=== PATIENT | female | born 1965 | race Two or more races ===

== ENCOUNTER 2024-05-23 12:36 | Inpatient (IN) | payer OTHER ==
[~2024-05-23] VITALS: Ht 160 cm; Wt 57.2 kg
[2024-05-23 09:29] LABS: URINE APPEARANCE Clear; URINE BILIRRUBIN Negative (NEGATIVE); URINE BLOOD Negative; URINE COLOR Yellow; URINE GLUCOSE Negative (NEGATIVE); URINE KETONE Negative (NEGATIVE); URINE LEUKOCYTE Negative; URINE NITRATE Negative; URINE PROTEIN Negative (NEGATIVE); URINE UROBILINOGEN 0.2 E.U./dl
[2024-05-23 09:45] LABS: URINE BACTERIA 3.6 uL (0.0-1933); URINE EPITHELIAL CELLS 0.9 uL (0.0-38.8); URINE RBC 1.6 uL (0.0-20.8)
[2024-05-23 09:49] LABS: HEMATOCRIT 24.2 % (36.0-45.00); MEAN CELL VOLUME 88.7 fL (80.00-100.00); MEAN CORPUSCULAR HGB CONC 33.7 g/dl (32.0-36.0); PLATELET COUNT 259 K/uL (150-450); RED BLOOD COUNT 2.73 M/uL (4.00-6.00); RED CELL DISTRIBUTION WIDTH 18.5 % (11.5-14.5)
[2024-05-23 09:51] LABS: HEMOGLOBIN 8.2 g/dL (12.0-15.00)
[2024-05-23 10:07] LABS: INR 1.06; PARTIAL THROMBOPLASTIN TIME 27.7 SECONDS (22.0-34.0); PROTHROMBIN TIME 11.5 SECONDS (9.0-11.5)
[2024-05-23 10:19] LABS: ALBUMIN 3.8 gm/dL (3.4-5.0); BILIRUBIN TOTAL 0.47 mg/dL (0.3-1.2); CALCIUM 11.1 mg/dL (8.5-10.1); CREATININE SERUM 0.68 mg/dL (0.55-1.02); GFR 88.26; GLOBULINA 2.7 G/DL (2.4-3.5); POTASSIUM 4.17 mEq/L (3.5-5.1); TOTAL PROTEIN 6.5 gm/dL (6.4-8.2)
[2024-05-23] MEDS ORDERED: COZAAR100 MG PO (12:41)
[2024-05-23 12:42] VITALS: BP 157/72
[2024-05-23] MEDS ORDERED: CEFAZOLIN SODIUM 1,000 MG VIAL IV SCH (14:15)
[2024-05-23 14:37] LABS: RH POSITIVE
[2024-05-23 15:26] LABS: HEMATOCRIT 24.3 % (36.0-45.00); MEAN CELL VOLUME 87.4 fL (80.00-100.00); MEAN CORPUSCULAR HGB CONC 33.6 g/dl (32.0-36.0); PLATELET COUNT 261 K/uL (150-450); RED BLOOD COUNT 2.78 M/uL (4.00-6.00); RED CELL DISTRIBUTION WIDTH 18.8 % (11.5-14.5)
[2024-05-23 15:58] LABS: ALBUMIN 3.8 gm/dL (3.4-5.0); BILIRUBIN TOTAL 0.44 mg/dL (0.3-1.2); CREATININE SERUM 0.7 mg/dL (0.55-1.02); GFR 85.35; GLOBULINA 2.7 G/DL (2.4-3.5); POTASSIUM 3.98 mEq/L (3.5-5.1); TOTAL PROTEIN 6.5 gm/dL (6.4-8.2)
[2024-05-23 16:00] VITALS: BP 135/61; O2SAT 98
[2024-05-23 16:10] LABS: MEAN CORPUSCULAR HEMOGLOBIN 29.4 pg (27.00-32.0)
[2024-05-23 16:11] LABS: HEMOGLOBIN 8.2 g/dL (12.0-15.00)
[2024-05-23] MEDS ORDERED: INSULIN LISPRO 1,000 UNIT/10 ML UNITS SUBCUTANEO PRN (17:15)
[2024-05-23] MEDS ORDERED: ENALAPRILAT DIHYDRATE 1.25 MG/ML VIAL IV PRN (17:15)
[2024-05-23] MEDS ORDERED: DEXTROSE 50 % IN WATER 0.5 G/ML DISP.SYRIN IV PRN (17:15)
[2024-05-24] VITALS: BP 110/55; O2SAT 98
[2024-05-24 08:00] VITALS: BP 104/50; O2SAT 95
[2024-05-24] MEDS ORDERED: LOSARTAN POTASSIUM 50 MG TABLET PO SCH (09:00)
[2024-05-24] MEDS ORDERED: FAMOtidine 20 MG TABLET PO SCH (09:00)
== END 2024-05-24 14:29 | disposition home or self-care (01) | DRG 599 ==
LOC: SURH 13:28 → SURG 05-24 11:30 → SURH 05-24 14:29 → SURG 05-24 15:00
PROVIDERS: ADMIT Surgery; ATTEND Surgery
DX: C50.512 Malignant neoplasm of lower-outer quadrant of left female breast (principal); Z53.09 Procedure and treatment not carried out because of other contraindication; D64.9 Anemia, unspecified

== ENCOUNTER 2024-06-12 07:00 | Inpatient (IN) | payer OTHER ==
[~2024-06-12] VITALS: Ht 160 cm; Wt 68.0 kg
[~2024-06-12 07:00] MED LIST: COZAAR100 MG PO
[2024-06-13] MEDS ORDERED: LOSARTAN POTASSIUM 50 MG TABLET PO SCH (16:20)
[2024-06-13 18:01] LABS: URINE APPEARANCE Clear; URINE BILIRRUBIN Negative (NEGATIVE); URINE BLOOD Negative; URINE COLOR Yellow; URINE EPITHELIAL CELLS 1.8 uL (0.0-38.8); URINE GLUCOSE Negative (NEGATIVE); URINE KETONE Negative (NEGATIVE); URINE LEUKOCYTE Negative; URINE NITRATE Negative; URINE PROTEIN Negative (NEGATIVE); URINE RBC 2.3 uL (0.0-20.8); URINE UROBILINOGEN 0.2 E.U./dl; URINE WBC 2.6 uL (0.0-23.2)
[2024-06-13 18:14] LABS: INR 1.08; PARTIAL THROMBOPLASTIN TIME 27.4 SECONDS (22.0-34.0); PROTHROMBIN TIME 11.7 SECONDS (9.0-11.5)
[2024-06-13 18:16] LABS: MEAN CELL VOLUME 86.1 fL (80.00-100.00); MEAN CORPUSCULAR HGB CONC 33.6 g/dl (32.0-36.0); PLATELET COUNT 206 K/uL (150-450); RED BLOOD COUNT 2.44 M/uL (4.00-6.00)
[2024-06-13 18:22] LABS: ALBUMIN 3.7 gm/dL (3.4-5.0); BILIRUBIN TOTAL 0.5 mg/dL (0.3-1.2); CALCIUM 11.5 mg/dL (8.5-10.1); CREATININE SERUM 0.98 mg/dL (0.55-1.02); GFR 57.89; GLOBULINA 2.7 G/DL (2.4-3.5); POTASSIUM 3.46 mEq/L (3.5-5.1); TOTAL PROTEIN 6.4 gm/dL (6.4-8.2)
[2024-06-13 18:23] LABS: URINE BACTERIA 1.2 uL (0.0-1933)
[2024-06-13 19:24] VITALS: BP 136/53; O2SAT 100
[2024-06-13 20:01] LABS: HEMOGLOBIN 7.1 g/dL (12.0-15.00)
[2024-06-14 00:34] VITALS: BP 109/62; O2SAT 98
[2024-06-14 08:00] VITALS: BP 126/79; O2SAT 96
[2024-06-14] MEDS ORDERED: SODIUM CHLORIDE 0.9% IV SCH (09:00)
[2024-06-14] MEDS ORDERED: CEFAZOLIN SODIUM IV SCH (09:00)
[2024-06-14 10:22] LABS: HEMATOCRIT 31.3 % (36.0-45.00); HEMOGLOBIN 10.7 g/dL (12.0-15.00); MEAN CELL VOLUME 86.2 fL (80.00-100.00); MEAN CORPUSCULAR HEMOGLOBIN 29.4 pg (27.00-32.0); MEAN CORPUSCULAR HGB CONC 34.1 g/dl (32.0-36.0); PLATELET COUNT 202 K/uL (150-450); RED BLOOD COUNT 3.63 M/uL (4.00-6.00); RED CELL DISTRIBUTION WIDTH 17.3 % (11.5-14.5)
[2024-06-14] MEDS ORDERED: CHLORHEXIDINE GLUCONATE 120 ML BOTTLE TOP ONE (14:24)
[2024-06-14] MEDS ORDERED: CEFAZOLIN SODIUM 1,000 MG VIAL ONE (15:45)
== END 2024-06-14 19:07 | disposition home or self-care (01) | DRG 580 ==
LOC: SURH 07:00
PROVIDERS: ADMIT Surgery; ATTEND Surgery
PROC: 07B60ZZ Excision of Left Axillary Lymphatic, Open Approach (ICD-10-PCS; principal; 2024-06-13)
PROC: BH41ZZZ Ultrasonography of Left Breast (ICD-10-PCS; 2024-06-13)
PROC: BH01ZZZ Plain Radiography of Left Breast (ICD-10-PCS; 2024-06-13)
PROC: 0HBU0ZZ Excision of Left Breast, Open Approach (ICD-10-PCS; 2024-06-13)
DX: C50.512 Malignant neoplasm of lower-outer quadrant of left female breast (principal); C77.3 Secondary and unspecified malignant neoplasm of axilla and upper limb lymph nodes

== ENCOUNTER 2024-07-23 14:18 | Inpatient (IN) | payer OTHER ==
[~2024-07-23] VITALS: Ht 160 cm; Wt 55.3 kg
--- NOTE | 2024-07-23 15:22 | NUR ---
PACIENTE ALERTA Y ORIENTADA X 3. SE ORIENTA DE TRATAMIENTO DEAN ORDEN MEDICA. REFIERE ENTENDER. SE JESSICA MUESTRAS CON MEDIDAS ASEPTICAS CORRESPONDIENTES. SE ENTRGA ENVASE PARA U/A.
[2024-07-23 15:50] LABS: ALBUMIN 3.8 gm/dL (3.4-5.0); BILIRUBIN TOTAL 0.79 mg/dL (0.3-1.2); CREATININE SERUM 1.13 mg/dL (0.55-1.02); GFR 48.95; GLOBULINA 3.2 G/DL (2.4-3.5); POTASSIUM 3.3 mEq/L (3.5-5.1)
[2024-07-23 15:57] LABS: CALCIUM 15.7 mg/dL (8.5-10.1)
[2024-07-23 15:58] LABS: C-REACTIVE PROTEIN 2.92 MG/DL (0.00-0.29)
[2024-07-23 16:12] LABS: MEAN CELL VOLUME 87.5 fL (80.00-100.00); MEAN CORPUSCULAR HGB CONC 33.5 g/dl (32.0-36.0); PLATELET COUNT 239 K/uL (150-450); RED BLOOD COUNT 2.49 M/uL (4.00-6.00); RED CELL DISTRIBUTION WIDTH 18.6 % (11.5-14.5)
[2024-07-23 16:13] LABS: HEMATOCRIT 21.8 % (36.0-45.00); MEAN CORPUSCULAR HEMOGLOBIN 29.3 pg (27.00-32.0)
[2024-07-23 16:16] LABS: HEMOGLOBIN 7.3 g/dL (12.0-15.00)
[2024-07-23 17:13] LABS: URINE APPEARANCE Cloudy; URINE BILIRRUBIN Negative (NEGATIVE); URINE BLOOD Moderate; URINE COLOR Orange; URINE GLUCOSE Negative (NEGATIVE); URINE KETONE Negative (NEGATIVE); URINE LEUKOCYTE Small; URINE NITRATE Negative; URINE PROTEIN 30 (NEGATIVE)
[2024-07-23 17:17] LABS: URINE CAST 11.34 uL (0.0-1.40); URINE EPITHELIAL CELLS 59.5 uL (0.0-38.8); URINE RBC 30.1 uL (0.0-20.8); URINE WBC 79.3 uL (0.0-23.2)
[2024-07-23 17:35] LABS: URINE CRYSTALS FEW /HPF; URINE MUCUS SCANT
[2024-07-23] MEDS ORDERED: 0.9 % SODIUM CHLORIDE 1,000 ML IV SCH (17:45)
[2024-07-23] MEDS ORDERED: ONDANSETRON HCL 4 MG in 0.9 % SODIUM CHLORIDE 50 ML IV PRN (18:15)
[2024-07-23] MEDS ORDERED: ACETAMINOPHEN 500 MG GEL..CAP PO PRN (18:30)
[2024-07-23] MEDS ORDERED: FUROsemide 20 MG/2 ML VIAL IV SCH (18:30)
[2024-07-23 19:52] LABS: INR 1.08; PARTIAL THROMBOPLASTIN TIME 23.9 SECONDS (22.0-34.0); PROTHROMBIN TIME 11.7 SECONDS (9.0-11.5)
[2024-07-23 20:14] LABS: ALBUMIN 3.7 gm/dL (3.4-5.0); BILIRUBIN TOTAL 0.61 mg/dL (0.3-1.2); CREATININE SERUM 1.02 mg/dL (0.55-1.02); GFR 55.09; GLOBULINA 2.6 G/DL (2.4-3.5); MAGNESIUM 1.6 mg/dL (1.8-2.4); PHOSPHOROUS 2.4 mg/dL (2.5-4.9); POTASSIUM 3.02 mEq/L (3.5-5.1); TOTAL PROTEIN 6.3 gm/dL (6.4-8.2)
[2024-07-23 21:39] VITALS: BP 123/74; O2SAT 100
[2024-07-23 23:18] VITALS: BP 113/58; O2SAT 99
[2024-07-24 04:00] VITALS: BP 127/70; O2SAT 100
[2024-07-24 07:06] LABS: ALBUMIN 3.2 gm/dL (3.4-5.0); BILIRUBIN TOTAL 0.48 mg/dL (0.3-1.2); CREATININE SERUM 0.88 mg/dL (0.55-1.02); GFR 65.32; GLOBULINA 2.3 G/DL (2.4-3.5); POTASSIUM 3.44 mEq/L (3.5-5.1); TOTAL PROTEIN 5.5 gm/dL (6.4-8.2)
[2024-07-24] MEDS ORDERED: FAMOTIDINE/PF 20 MG in 0.9 % SODIUM CHLORIDE 8 ML IV PUSH SCH (09:00)
[2024-07-24] MEDS ORDERED: METOPROLOL SUCCINATE 25 MG TAB.SR.24H PO SCH (09:00)
[2024-07-24] MEDS ORDERED: MAGNESIUM SULFATE IN WATER 50 ML IV STA (09:25)
[2024-07-24] MEDS ORDERED: POTASSIUM BICARBONATE/CIT AC 25 MEQ TABLET.EFF PO ONE (09:30)
[2024-07-24] MEDS ORDERED: CHLORHEXIDINE GLUCONATE 120 ML BOTTLE TOP ONE (11:18)
[2024-07-24 12:00] VITALS: BP 131/77; O2SAT 100
[2024-07-24] MEDS ORDERED: ZOLEDRONIC ACID 4MG/5ML VIAL IV STA (12:29)
[2024-07-24 15:30] LABS: ALBUMIN 3.1 gm/dL (3.4-5.0); BILIRUBIN TOTAL 0.38 mg/dL (0.3-1.2); CREATININE SERUM 0.97 mg/dL (0.55-1.02); GFR 58.38; GLOBULINA 2.8 G/DL (2.4-3.5); MAGNESIUM 2.5 mg/dL (1.8-2.4); POTASSIUM 3.59 mEq/L (3.5-5.1); TOTAL PROTEIN 5.9 gm/dL (6.4-8.2)
[2024-07-24 15:35] LABS: PHOSPHOROUS 1.7 mg/dL (2.5-4.9)
[2024-07-24 16:28] VITALS: BP 114/47; O2SAT 100
[2024-07-24] MEDS ORDERED: POTASSIUM PHOS,M-BASIC-D-BASIC 15 MM in 0.9 % SODIUM CHLORIDE 250 ML IV NR (17:00)
[2024-07-24] MEDS ORDERED: METHYLPREDNISOLONE SOD SUCC 40 MG VIAL IV SCH (19:30)
[2024-07-24] MEDS ORDERED: DIPHENHYDRAMINE HCL 50 MG/ML VIAL 1ML IV SCH (19:30)
[2024-07-24 20:00] VITALS: BP 112/62; O2SAT 100
[2024-07-24 23:18] VITALS: BP 103/54; O2SAT 98
[2024-07-25 04:00] VITALS: BP 118/58; O2SAT 100
[2024-07-25 07:00] VITALS: BP 133/78; O2SAT 100
[2024-07-25] MEDS ORDERED: POTASSIUM CHLORIDE IN WATER 40 MEQ/100 ML PIGGYBAG IV ONE (09:15)
[2024-07-25] MEDS ORDERED: POTASSIUM CHLORIDE 20MEQ/100ML H2O PB IV ONE (09:15)
[2024-07-25 09:48] LABS: MEAN CELL VOLUME 84.6 fL (80.00-100.00); MEAN CORPUSCULAR HGB CONC 34.2 g/dl (32.0-36.0); PLATELET COUNT 190 K/uL (150-450); RED BLOOD COUNT 3.31 M/uL (4.00-6.00); RED CELL DISTRIBUTION WIDTH 17.8 % (11.5-14.5)
[2024-07-25 10:42] LABS: HEMOGLOBIN 9.6 g/dL (12.0-15.00)
[2024-07-25 10:44] LABS: ALBUMIN 3.3 gm/dL (3.4-5.0); BILIRUBIN TOTAL 1.44 mg/dL (0.3-1.2); CALCIUM 12.7 mg/dL (8.5-10.1); CREATININE SERUM 1.11 mg/dL (0.55-1.02); GFR 49.97; GLOBULINA 2.4 G/DL (2.4-3.5); POTASSIUM 3.91 mEq/L (3.5-5.1); TOTAL PROTEIN 5.7 gm/dL (6.4-8.2)
[2024-07-25] MEDS ORDERED: SODIUM CHLORIDE 0.45 % 1,000 ML IV SCH (11:30)
[2024-07-25 12:00] VITALS: BP 122/71; O2SAT 98
[2024-07-25] MEDS ORDERED: POTASSIUM PHOS,M-BASIC-D-BASIC 15 MM in 0.9 % SODIUM CHLORIDE 250 ML IV ONE (12:00)
[2024-07-25 15:36] VITALS: O2SAT 96
[2024-07-25 19:30] VITALS: BP 128/65; O2SAT 99
[2024-07-25] MEDS ORDERED: IRON FUM,PS/FOLIC/BCOMP,C NO.9 1 CAP CAPSULE PO SCH (21:00)
[2024-07-25] MEDS ORDERED: AMINO ACIDS 1 EACH TABLET PO SCH (21:00)
[2024-07-26] VITALS (7 sets, daily range): BP systolic 100–130; BP diastolic 50–68; O2SAT 96–98
[2024-07-26 05:44] LABS: HEMATOCRIT 24.6 % (36.0-45.00); MEAN CELL VOLUME 84.5 fL (80.00-100.00); MEAN CORPUSCULAR HGB CONC 34.4 g/dl (32.0-36.0); PLATELET COUNT 158 K/uL (150-450); RED BLOOD COUNT 2.91 M/uL (4.00-6.00)
[2024-07-26 06:42] LABS: ALBUMIN 2.8 gm/dL (3.4-5.0); BILIRUBIN TOTAL 0.73 mg/dL (0.3-1.2); CALCIUM 10.7 mg/dL (8.5-10.1); CREATININE SERUM 0.9 mg/dL (0.55-1.02); GFR 63.65; GLOBULINA 2.1 G/DL (2.4-3.5); MAGNESIUM 1.6 mg/dL (1.8-2.4); TOTAL PROTEIN 4.9 gm/dL (6.4-8.2)
[2024-07-26 07:19] LABS: HEMOGLOBIN 8.5 g/dL (12.0-15.00); MEAN CORPUSCULAR HEMOGLOBIN 29.2 pg (27.00-32.0)
[2024-07-26 07:34] LABS: PHOSPHOROUS 1.8 mg/dL (2.5-4.9); POTASSIUM 2.93 mEq/L (3.5-5.1)
[2024-07-26] MEDS ORDERED: POTASSIUM CHLORIDE IN WATER 40 MEQ/100 ML PIGGYBAG IV SCH (09:00)
[2024-07-26] MEDS ORDERED: MAGNESIUM SULFATE IN WATER 2 GM/50 ML PIGGYBAG IV STA (09:20)
[2024-07-26] MEDS ORDERED: POTASSIUM PHOS,M-BASIC-D-BASIC 3 MM/ML VIAL IV NR (09:30)
[2024-07-26] MEDS ORDERED: POTASSIUM BICARBONATE/CIT AC 25 MEQ TABLET.EFF PO NR (09:30)
[2024-07-26] MEDS ORDERED: MAGNESIUM SULFATE IN WATER 2 GM/50 ML PIGGYBAG IV NR (16:45)
[2024-07-27 00:44] VITALS: BP 115/70; O2SAT 98
[2024-07-27 08:30] LABS: HEMATOCRIT 26.4 % (36.0-45.00); HEMOGLOBIN 9.1 g/dL (12.0-15.00); MEAN CELL VOLUME 85.5 fL (80.00-100.00); MEAN CORPUSCULAR HEMOGLOBIN 29.5 pg (27.00-32.0); MEAN CORPUSCULAR HGB CONC 34.6 g/dl (32.0-36.0); PLATELET COUNT 170 K/uL (150-450); RED BLOOD COUNT 3.08 M/uL (4.00-6.00); RED CELL DISTRIBUTION WIDTH 17.5 % (11.5-14.5)
[2024-07-27 08:48] LABS: BILIRUBIN TOTAL 0.8 mg/dL (0.3-1.2); CALCIUM 10.6 mg/dL (8.5-10.1); CREATININE SERUM 0.77 mg/dL (0.55-1.02); GFR 76.21; GLOBULINA 2.3 G/DL (2.4-3.5); PHOSPHOROUS 2.5 mg/dL (2.5-4.9); POTASSIUM 3.4 mEq/L (3.5-5.1); TOTAL PROTEIN 5.3 gm/dL (6.4-8.2)
[2024-07-27 09:06] VITALS: BP 130/71
[2024-07-27] MEDS ORDERED: POTASSIUM BICARBONATE/CIT AC 25 MEQ TABLET.EFF PO NR (13:00)
[2024-07-27] MEDS ORDERED: BENZONATATE 100 MG CAPSULE PO NR (14:00)
[2024-07-27] MEDS ORDERED: BENZONATATE 100 MG CAPSULE PO SCH (17:00)
[2024-07-27 17:06] VITALS: BP 144/81; O2SAT 98
[2024-07-27] MEDS ORDERED: POTASSIUM BICARBONATE/CIT AC 25 MEQ TABLET.EFF PO SCH (21:00)
[2024-07-28 01:51] VITALS: BP 115/72; O2SAT 96
[2024-07-28 08:21] LABS: ALBUMIN 2.9 gm/dL (3.4-5.0); BILIRUBIN TOTAL 0.74 mg/dL (0.3-1.2); CALCIUM 10.4 mg/dL (8.5-10.1); CREATININE SERUM 0.74 mg/dL (0.55-1.02); GFR 79.78; GLOBULINA 2.1 G/DL (2.4-3.5); MAGNESIUM 1.9 mg/dL (1.8-2.4); POTASSIUM 3.72 mEq/L (3.5-5.1)
[2024-07-28 08:59] VITALS: BP 139/61
[2024-07-28] MEDS ORDERED: 0.9 % SODIUM CHLORIDE 1,000 ML IV SCH (12:30)
[2024-07-28] MEDS ORDERED: POTASSIUM BICARBONATE/CIT AC 25 MEQ TABLET.EFF PO NR (17:00)
[2024-07-28] MEDS ORDERED: FUROsemide 20 MG TABLET PO SCH (17:00)
[2024-07-28 17:39] VITALS: BP 137/82; O2SAT 98
[2024-07-29 00:36] VITALS: BP 114/69; O2SAT 95
[2024-07-29 07:01] LABS: ALBUMIN 3.1 gm/dL (3.4-5.0); BILIRUBIN TOTAL 0.89 mg/dL (0.3-1.2); CALCIUM 10.3 mg/dL (8.5-10.1); CREATININE SERUM 0.7 mg/dL (0.55-1.02); GFR 85.07; GLOBULINA 2.1 G/DL (2.4-3.5); POTASSIUM 3.77 mEq/L (3.5-5.1); TOTAL PROTEIN 5.2 gm/dL (6.4-8.2)
[2024-07-29 08:06] VITALS: BP 116/65
[2024-07-29] MEDS ORDERED: TOPROL XL25 M1 PO (10:31)
[2024-07-29] MEDS ORDERED: FUROSEMIDE20 MG PO (10:31)
[2024-07-29] MEDS ORDERED: INTEGRA PLUS C1 EACH PO (10:31)
[2024-07-29] MEDS ORDERED: PRE PROTEIN1 EACH PO (10:31)
== END 2024-07-29 12:45 | disposition home or self-care (01) | DRG 812 ==
LOC: ER 14:21 → ICU-2 19:18 → ICU 19:18 → MEDI 07-25 18:34
PROVIDERS: General Practice; Internal Medicine; Internal Medicine Endocrinology, Diabetes & Metabolism; Internal Medicine Hematology & Oncology; ADMIT Internal Medicine; ATTEND Internal Medicine
PROC: B24BYZZ Ultrasonography of Heart with Aorta using Other Contrast (ICD-10-PCS; principal; 2024-07-24)
PROC: 30233N1 Transfusion of Nonautologous Red Blood Cells into Peripheral Vein, Percutaneous Approach (ICD-10-PCS; 2024-07-24)
PROC: 4A12X4Z Monitoring of Cardiac Electrical Activity, External Approach (ICD-10-PCS; 2024-07-25)
DX: D64.9 Anemia, unspecified (principal); C90.00 Multiple myeloma not having achieved remission; E83.52 Hypercalcemia; I50.9 Heart failure, unspecified; F43.20 Adjustment disorder, unspecified; C50.512 Malignant neoplasm of lower-outer quadrant of left female breast

== ENCOUNTER 2024-08-09 17:30 | Emergency (ER) | payer OTHER ==
[~2024-08-09] VITALS: Ht 160 cm; Wt 55.8 kg
[~2024-08-09 17:30] MED LIST changes: +FUROSEMIDE20 MG PO; +INTEGRA PLUS C1 EACH PO; +PRE PROTEIN1 EACH PO; +TOPROL XL25 M1 PO
[2024-08-09] MEDS ORDERED: CHOLESTYRAMINE/ASPARTAME LIGHT 4 G/PKT PACKET PO ONE (19:00)
[2024-08-09] MEDS ORDERED: 0.9 % SODIUM CHLORIDE 1,000 ML IV ONE (19:00)
[2024-08-09] MEDS ORDERED: PANTOPRAZOLE SODIUM 40 MG/VIAL VIAL IV ONE (19:00)
[2024-08-09 20:07] LABS: HEMATOCRIT 25.5 % (36.0-45.00); HEMOGLOBIN 8.7 g/dL (12.0-15.00); MEAN CELL VOLUME 85.4 fL (80.00-100.00); MEAN CORPUSCULAR HGB CONC 34.2 g/dl (32.0-36.0); PLATELET COUNT 190 K/uL (150-450); RED BLOOD COUNT 2.99 M/uL (4.00-6.00); RED CELL DISTRIBUTION WIDTH 18.2 % (11.5-14.5)
[2024-08-09 20:13] LABS: POTASSIUM 3.05 mEq/L (3.5-5.1)
[2024-08-09 20:19] LABS: ALBUMIN 3.3 gm/dL (3.4-5.0); BILIRUBIN TOTAL 0.52 mg/dL (0.3-1.2); CALCIUM 12.9 mg/dL (8.5-10.1); CREATININE SERUM 1.05 mg/dL (0.55-1.02); GFR 53.28; TOTAL PROTEIN 6.3 gm/dL (6.4-8.2)
[2024-08-09] MEDS ORDERED: POTASSIUM BICARBONATE/CIT AC 25 MEQ TABLET.EFF PO ONE (21:15)
[2024-08-09] MEDS ORDERED: PROTONIX40 MG PO (23:28)
[2024-08-09] MEDS ORDERED: QUESTRAN PACKET4 GM PO (23:28)
== END 2024-08-10 00:23 | disposition home or self-care (01) ==
LOC: ER 17:31
PROVIDERS: General Practice
DX: K52.1 Toxic gastroenteritis and colitis (principal); T45.1X5A Adverse effect of antineoplastic and immunosuppressive drugs, initial encounter; Y92.89 Other specified places as the place of occurrence of the external cause; I10 Essential (primary) hypertension; Z88.8 Allergy status to other drugs, medicaments and biological substances; Z85.3 Personal history of malignant neoplasm of breast

== ENCOUNTER 2024-08-26 14:06 | Inpatient (IN) | payer OTHER ==
[~2024-08-26] VITALS: Ht 160 cm; Wt 50.3 kg
[~2024-08-26 14:06] MED LIST changes: +PROTONIX40 MG PO; +QUESTRAN PACKET4 GM PO
--- NOTE | 2024-08-26 15:16 | NUR ---
PACIENTE ALERTA Y ORIENTADA X3, REFIERE VENIR POR PARTE DEL DR. BERNADETTE MEYER DEBIDO A QUE SE REALIZO UN CBC HOY DONDE TENIA LA HEMOGLOBINA EN 7.30
--- NOTE | 2024-08-26 16:55 | NUR ---
PACIENTE EVALUADA POR DR. ZAPIEN QUIEN [place] [facility], RN LUO EDUCA ACERCA DEL MISMO Y REFIERE ENTENDER, SE CANALIZA Y COLECTAN MUESTRAS DE LABORATORIO MEDIANTE MEDIDAS ASEPTICAS.
[2024-08-26 17:08] LABS: MEAN CELL VOLUME 89.2 fL (80.00-100.00); PLATELET COUNT 161 K/uL (150-450); RED BLOOD COUNT 2.32 M/uL (4.00-6.00)
[2024-08-26 17:17] LABS: HEMATOCRIT 20.7 % (36.0-45.00); MEAN CORPUSCULAR HEMOGLOBIN 30.1 pg (27.00-32.0); RED CELL DISTRIBUTION WIDTH 22.7 % (11.5-14.5)
[2024-08-26 17:27] LABS: INR 1.14; PARTIAL THROMBOPLASTIN TIME 28.3 SECONDS (22.0-34.0); PROTHROMBIN TIME 12.3 SECONDS (9.0-11.5)
[2024-08-26 18:07] LABS: PH,URINE 5.5 (5.0-8.0); URINE APPEARANCE Cloudy; URINE BILIRRUBIN Negative (NEGATIVE); URINE BLOOD Trace; URINE COLOR Dark Yellow; URINE GLUCOSE Negative (NEGATIVE); URINE KETONE Negative (NEGATIVE); URINE LEUKOCYTE Negative; URINE NITRATE Negative
[2024-08-26 18:11] LABS: URINE BACTERIA 562.9 uL (0.0-1933); URINE EPITHELIAL CELLS 18.8 uL (0.0-38.8); URINE RBC 40.8 uL (0.0-20.8); URINE WBC 13.1 uL (0.0-23.2)
[2024-08-26 18:30] LABS: ALBUMIN 3.4 gm/dL (3.4-5.0); BILIRUBIN TOTAL 0.63 mg/dL (0.3-1.2); CREATININE SERUM 0.79 mg/dL (0.55-1.02); GFR 73.99; GLOBULINA 2.8 G/DL (2.4-3.5); POTASSIUM 3.09 mEq/L (3.5-5.1); TOTAL PROTEIN 6.2 gm/dL (6.4-8.2)
[2024-08-26 18:30] LABS: URINE CAST 1.32 uL (0.0-1.40); URINE CRYSTALS MODERATE /HPF; URINE PROTEIN 100 (NEGATIVE)
[2024-08-26 18:37] LABS: CALCIUM 13.1 mg/dL (8.5-10.1)
[2024-08-26] MEDS ORDERED: PANTOPRAZOLE SODIUM 40 MG/VIAL VIAL IV SCH (19:06)
[2024-08-26] MEDS ORDERED: 0.9 % SODIUM CHLORIDE 1,000 ML IV SCH (19:15)
[2024-08-26] MEDS ORDERED: ACETAMINOPHEN 500 MG GEL..CAP PO PRN (19:15)
[2024-08-26] MEDS ORDERED: FUROsemide 20 MG/2 ML VIAL IV SCH (19:15)
[2024-08-26] MEDS ORDERED: POTASSIUM CHLORIDE 20MEQ/100ML H2O PB IV ONE (20:00)
[2024-08-27] MEDS ORDERED: METOPROLOL SUCCINATE 25 MG TAB.SR.24H PO SCH (09:00)
[2024-08-28 03:10] VITALS: BP 131/56; O2SAT 100
[2024-08-28] MEDS ORDERED: METHYLPREDNISOLONE SOD SUCC 40 MG VIAL IV SCH (03:45)
[2024-08-28] MEDS ORDERED: DIPHENHYDRAMINE HCL 50 MG/ML VIAL 1ML IV SCH (03:45)
[2024-08-28 07:07] VITALS: BP 109/50; O2SAT 100
[2024-08-28 12:12] VITALS: BP 120/51; O2SAT 100
[2024-08-28 15:58] VITALS: BP 1236/56; O2SAT 100
[2024-08-28 16:56] LABS: MEAN CORPUSCULAR HGB CONC 34.6 g/dl (32.0-36.0); PLATELET COUNT 188 K/uL (150-450); RED BLOOD COUNT 2.84 M/uL (4.00-6.00); RED CELL DISTRIBUTION WIDTH 20.8 % (11.5-14.5)
[2024-08-28 17:01] LABS: HEMOGLOBIN 8.7 g/dL (12.0-15.00); MEAN CORPUSCULAR HEMOGLOBIN 30.6 pg (27.00-32.0)
[2024-08-28 17:24] LABS: ALBUMIN 3.4 gm/dL (3.4-5.0); BILIRUBIN TOTAL 0.82 mg/dL (0.3-1.2); CALCIUM 11.6 mg/dL (8.5-10.1); CREATININE SERUM 0.81 mg/dL (0.55-1.02); GFR 71.88; GLOBULINA 2.2 G/DL (2.4-3.5); MAGNESIUM 1.6 mg/dL (1.8-2.4); PHOSPHOROUS 2.2 mg/dL (2.5-4.9); POTASSIUM 3.56 mEq/L (3.5-5.1); TOTAL PROTEIN 5.6 gm/dL (6.4-8.2)
[2024-08-28 18:23] LABS: ALBUMIN 3.4 gm/dL (3.4-5.0); ANION GAP 10 (10.0-20.0); BLOOD UREA NITROGEN 15 mg/dL (7-18); BUN CREA RATIO 18 (7.0-25.0); CALCIUM 11.7 mg/dL (8.5-10.1); CARBON DIOXIDE 31 mEq/L (21-32); CHLORIDE 104 mmol/L (98-107); CREATININE SERUM 0.83 mg/dL (0.55-1.02); GFR 69.89; GLOBULINA 2.3 G/DL (2.4-3.5); GLUCOSE FASTING 230 mg/dL (65-100); OSMOLALITY SERUM 289 MOSM/KG (275-295); POTASSIUM 3.56 mEq/L (3.5-5.1); SODIUM 141 mmol/L (136-145); TOTAL PROTEIN 5.7 gm/dL (6.4-8.2)
[2024-08-28 18:24] LABS: ALKALINE PHOSPHATASE 136 U/L (50-136); ALT/SGPT 19 U/L (12-78); AST/SGOT 15 U/L (15-37); BILIRUBIN TOTAL < 0.10 mg/dL (0.3-1.2); TSH 0.187 uIU/mL (0.358-3.74)
[2024-08-28] MEDS ORDERED: MAGNESIUM SULFATE IN WATER 2 GM/50 ML PIGGYBAG IV NR (19:00)
[2024-08-28] MEDS ORDERED: DEXTROSE 50 % IN WATER 0.5 G/ML VIAL IV PRN (20:00)
[2024-08-28] MEDS ORDERED: INSULIN LISPRO 1,000 UNIT/10 ML UNITS SUBCUTANEO PRN (20:00)
[2024-08-28 20:08] VITALS: BP 117/70; O2SAT 100
[2024-08-28 23:40] VITALS: BP 126/57; O2SAT 100
[2024-08-29 04:33] VITALS: BP 124/57; O2SAT 100
[2024-08-29 07:20] VITALS: BP 118/57; O2SAT 100
[2024-08-29 12:00] VITALS: BP 140/68; O2SAT 100
[2024-08-29] MEDS ORDERED: POTASSIUM PHOS,M-BASIC-D-BASIC 15 MM in 0.9 % SODIUM CHLORIDE 250 ML IV ONE (13:00)
[2024-08-29 15:36] VITALS: BP 138/67; O2SAT 100
[2024-08-29 17:45] LABS: HEMATOCRIT 38.4 % (36.0-45.00); HEMOGLOBIN 13.2 g/dL (12.0-15.00); MEAN CELL VOLUME 86.2 fL (80.00-100.00); MEAN CORPUSCULAR HEMOGLOBIN 29.6 pg (27.00-32.0); MEAN CORPUSCULAR HGB CONC 34.3 g/dl (32.0-36.0); PLATELET COUNT 141 K/uL (150-450); RED BLOOD COUNT 4.45 M/uL (4.00-6.00); RED CELL DISTRIBUTION WIDTH 18.4 % (11.5-14.5)
[2024-08-29 19:35] VITALS: BP 144/86; O2SAT 100
[2024-08-30 02:00] VITALS: O2SAT 100
[2024-08-30 03:01] VITALS: BP 110/61; O2SAT 100
[2024-08-30 05:52] VITALS: O2SAT 99
[2024-08-30 06:12] LABS: HEMATOCRIT 28.3 % (36.0-45.00); MEAN CELL VOLUME 86.4 fL (80.00-100.00); MEAN CORPUSCULAR HGB CONC 35.4 g/dl (32.0-36.0); PLATELET COUNT 159 K/uL (150-450); RED BLOOD COUNT 3.27 M/uL (4.00-6.00); RED CELL DISTRIBUTION WIDTH 18.4 % (11.5-14.5)
[2024-08-30 06:36] LABS: MEAN CORPUSCULAR HEMOGLOBIN 30.5 pg (27.00-32.0)
[2024-08-30 06:53] LABS: BILIRUBIN TOTAL 0.66 mg/dL (0.3-1.2); CREATININE SERUM 0.82 mg/dL (0.55-1.02); GFR 70.87; GLOBULINA 2.1 G/DL (2.4-3.5); POTASSIUM 3.36 mEq/L (3.5-5.1); TOTAL PROTEIN 5.1 gm/dL (6.4-8.2)
[2024-08-30 07:55] VITALS: BP 130/74
[2024-08-30 09:00] VITALS: O2SAT 90
[2024-08-30] MEDS ORDERED: TOPROL XL25 M1 PO (12:05)
[2024-08-30] MEDS ORDERED: INTEGRA PLUS C1 EACH PO (12:06)
[2024-08-30 13:06] VITALS: O2SAT 90
[2024-08-30] MEDS ORDERED: POTASSIUM BICARBONATE/CIT AC 25 MEQ TABLET.EFF PO SCH (17:00)
== END 2024-08-30 13:39 | disposition home or self-care (01) | DRG 811 ==
LOC: ER 14:06 → ICU 19:44 → ICU-2 19:44 → ICU 08-28 05:44 → MEDI 08-29 20:05
PROVIDERS: General Practice; ADMIT Internal Medicine; ATTEND Internal Medicine
PROC: B24BYZZ Ultrasonography of Heart with Aorta using Other Contrast (ICD-10-PCS; principal; 2024-08-26)
PROC: 30233N1 Transfusion of Nonautologous Red Blood Cells into Peripheral Vein, Percutaneous Approach (ICD-10-PCS; 2024-08-28)
PROC: 4A12X4Z Monitoring of Cardiac Electrical Activity, External Approach (ICD-10-PCS; 2024-08-30)
DX: D64.9 Anemia, unspecified (principal); I21.A1 Myocardial infarction type 2; C90.00 Multiple myeloma not having achieved remission; J90 Pleural effusion, not elsewhere classified; I27.20 Pulmonary hypertension, unspecified; E83.52 Hypercalcemia; I10 Essential (primary) hypertension; I35.0 Nonrheumatic aortic (valve) stenosis; E87.6 Hypokalemia

== ENCOUNTER 2024-09-02 00:32 | Inpatient (IN) | payer OTHER ==
[~2024-09-02] VITALS: Ht 160 cm; Wt 50.3 kg
[2024-09-02] MEDS ORDERED: LASIX20 MG PO (01:01)
[2024-09-02] MEDS ORDERED: GLIPIZIDE XL10 MG PO (01:01)
[2024-09-02] MEDS ORDERED: ZOFRAN8 MG PO (01:01)
[2024-09-02] MEDS ORDERED: METHYLPREDNISOLONE SOD SUCC 125 MG VIAL IV STA (01:02)
--- NOTE | 2024-09-02 01:02 | NUR ---
PACIENTE ALERTA Y ORIENTADA TRAIDA EN AMBULANCIA. PACIENTE REFIERE VENIR POR DIFICULTAD AL RESPIRAR DESDE JUAN M. SE ESTIMAN VITALES Y SE UBICA. SE REALIZA EKG Y SE PRESENTA A MD DE TURNO DR EDWARDS.
[2024-09-02] MEDS ORDERED: LEVALBUTEROL HCL 1.25 MG/3 ML SOLUTION IH ONE (01:03)
[2024-09-02] MEDS ORDERED: WATER FOR INJ.,BACTERIOSTATIC 30 ML VIAL IJ ONE (01:05)
[2024-09-02] MEDS ORDERED: METHYLPREDNISOLONE SOD SUCC 125 MG VIAL ONE (01:05)
[2024-09-02] MEDS ORDERED: CEFTRIAXONE SODIUM 1,000 MG VIAL IV STA (01:09)
[2024-09-02] MEDS ORDERED: LEVALBUTEROL HCL 0.63 MG/3 ML SOLUTION IH SCH ×2 (01:15→18:00)
[2024-09-02 01:55] LABS: ALBUMIN 3.8 gm/dL (3.4-5.0); BILIRUBIN TOTAL 0.86 mg/dL (0.3-1.2); CALCIUM 9.5 mg/dL (8.5-10.1); CREATININE SERUM 0.73 mg/dL (0.55-1.02); GFR 81.05; GLOBULINA 2.4 G/DL (2.4-3.5); POTASSIUM 3.34 mEq/L (3.5-5.1); TOTAL PROTEIN 6.2 gm/dL (6.4-8.2)
[2024-09-02] MEDS ORDERED: CEFTRIAXONE SODIUM 1,000 MG VIAL ONE (02:00)
--- NOTE | 2024-09-02 02:00 | NUR ---
SE EDUCA SOBRE [place] MED[place], ESTA REFIERE ENTENDER. SE EXTRAEN MUESTRAS DE LABORATORIO DEAN ORDEN MEDICA. SE NOTIFICA XRAY. SE CONECTA PACIENTE A MONITOR CARDIACO Y OXIMETRIA DE PULSO CONTINUA.
[2024-09-02 02:23] LABS: HEMATOCRIT 34.5 % (36.0-45.00); HEMOGLOBIN 11.6 g/dL (12.0-15.00); MEAN CELL VOLUME 88.6 fL (80.00-100.00); MEAN CORPUSCULAR HEMOGLOBIN 29.8 pg (27.00-32.0); MEAN CORPUSCULAR HGB CONC 33.7 g/dl (32.0-36.0); PLATELET COUNT 178 K/uL (150-450); RED CELL DISTRIBUTION WIDTH 19.2 % (11.5-14.5)
[2024-09-02 02:32] LABS: INR 1.21; PARTIAL THROMBOPLASTIN TIME 33.3 SECONDS (22.0-34.0)
[2024-09-02] MEDS ORDERED: NITROGLYCERIN IN 5 % DEXTROSE 50 MG/250 ML BOTTLE IV ONE (02:37)
[2024-09-02] MEDS ORDERED: NITROGLYCERIN 250 ML IV SCH (02:45)
[2024-09-02 02:53] LABS: INFLUENZA A AG NEGATIVE (NEGATIVE)
[2024-09-02 03:10] LABS: COVID-19 AG NEGATIVE (NEGATIVE)
[2024-09-02] MEDS ORDERED: OSELTAMIVIR PHOSPHATE 75 MG CAPSULE PO STA (03:19)
[2024-09-02] MEDS ORDERED: ACETAMINOPHEN 500 MG GEL..CAP PO ONE (04:24)
--- NOTE | 2024-09-02 04:30 | NUR ---
SE ADMINISTRAN 2 CAP DE TYLENOL 500MG.
[2024-09-02] MEDS ORDERED: GUAIFENESIN 200 MG/10 ML BLIST.PACK PO ONE ×2 (05:45→05:49)
[2024-09-02] MEDS ORDERED: NITROGLYCERIN IN 5 % DEXTROSE 250 ML IV SCH (06:15)
[2024-09-02 06:31] LABS: ABG PH 7.441 (7.35-7.45); ABG PO2 63.3 mmHg (80-100); BASE EXCESS 0 mmol/l; BICARBONATE 23.6 mmol/l (23-25); SaO2 92.8 %
[2024-09-02 06:32] LABS: ABG pCO2 35.4 mmHg (35-45); Tco2 24.7 mmol/l; allen test SATISFACTORY; mode ROOM AIR; o2 21 %; puncture site RADIAL LEFT
--- NOTE | 2024-09-02 07:55 | NUR ---
7:00AM SE RECIBE PTE ALERTA Y ORIENTADA X3 EN CAMA BAJA CON BARANDAS ELEVADAS. PTE CON VENTURY MASK AL 35%, LA CUAL TOLERA AL MOMENTO. CONECTADA A MONITOR CRADIACO Y SATUROMETRO. CANALIZADA EN BRAZO BRAZO DERECHO CON ANGIO #20 Y #24 PATENTE ANKITA DE EDEMA Y ENROJEICMIENTO. RECIBIENDO TRIDIL 50MG/250ML BAJANDO 1ML/HR. PENDIENTE CONSULTA CON DR. HOLLY THAKKAR. 7:50AM SE TRASLADA PTE JUNTO A ESCOLTA DE TURNO PARA CHEST CT.
[2024-09-02] MEDS ORDERED: ATORVASTATIN CALCIUM 40 MG TABLET PO SCH (15:22)
[2024-09-02] MEDS ORDERED: ASPIRIN 81 MG TABLET.EC PO SCH (15:22)
[2024-09-02] MEDS ORDERED: TICAGRELOR 90 MG TABLET PO STA (15:22)
[2024-09-02] MEDS ORDERED: POTASSIUM BICARBONATE/CIT AC 25 MEQ TABLET.EFF PO ONE (15:30)
[2024-09-02] MEDS ORDERED: IRON FUM,PS/FOLIC/BCOMP,C NO.9 1 CAP CAPSULE PO SCH (16:04)
[2024-09-02] MEDS ORDERED: ENOXAPARIN SODIUM 40 MG/0.4 ML SYRINGE SUBCUTANEO SCH (16:05)
[2024-09-02] MEDS ORDERED: TICAGRELOR 90 MG TABLET PO SCH (17:00)
[2024-09-02] MEDS ORDERED: FUROsemide 20 MG/2 ML VIAL IV SCH (17:00)
[2024-09-02] MEDS ORDERED: IPRATROPIUM BROMIDE 0.5 MG/2.5 ML AMPUL.NEB IH SCH (17:00)
[2024-09-02] MEDS ORDERED: OSELTAMIVIR PHOSPHATE 75 MG CAPSULE PO SCH (17:00)
[2024-09-02 17:55] VITALS: BP 118/63; O2SAT 99
[2024-09-02] MEDS ORDERED: BENZONATATE 100 MG CAPSULE PO PRN (18:00)
[2024-09-02] MEDS ORDERED: BENZONATATE 200 MG CAPSULE PO PRN (18:45)
[2024-09-02] MEDS ORDERED: LEVALBUTEROL HCL 0.63 MG/3 ML SOLUTION IH ONE (19:22)
[2024-09-02] MEDS ORDERED: IPRATROPIUM BROMIDE 0.5 MG/2.5 ML AMPUL.NEB IH ONE (19:22)
[2024-09-02 23:00] VITALS: BP 123/80; O2SAT 99
[2024-09-03] VITALS (15 sets, daily range): BP systolic 100–122; BP diastolic 47–80; O2SAT 97–100
[2024-09-03] MEDS ORDERED: FUROsemide 20 MG/2 ML VIAL ONE (01:46)
[2024-09-03 06:17] LABS: HEMOGLOBIN 12.2 g/dL (12.0-15.00); MEAN CORPUSCULAR HEMOGLOBIN 29.9 pg (27.00-32.0); MEAN CORPUSCULAR HGB CONC 34.8 g/dl (32.0-36.0); PLATELET COUNT 181 K/uL (150-450); RED BLOOD COUNT 4.07 M/uL (4.00-6.00); RED CELL DISTRIBUTION WIDTH 18.7 % (11.5-14.5)
[2024-09-03 06:41] LABS: ERYTHROCYTE SEDIMENTATION RATE 30 mm/hr
[2024-09-03 06:45] LABS: ALBUMIN 3.3 gm/dL (3.4-5.0); BILIRUBIN TOTAL 0.93 mg/dL (0.3-1.2); CALCIUM 8.6 mg/dL (8.5-10.1); CHOL HDL RATIO 2.9 (0-5.0); CREATININE SERUM 0.67 mg/dL (0.55-1.02); GFR 89.48; GLOBULINA 2.6 G/DL (2.4-3.5); MAGNESIUM 1.6 mg/dL (1.8-2.4); TOTAL PROTEIN 5.9 gm/dL (6.4-8.2); TSH 0.599 uIU/mL (0.358-3.74)
[2024-09-03 07:37] LABS: C-REACTIVE PROTEIN 9.75 MG/DL (0.00-0.29)
[2024-09-03 07:40] LABS: PHOSPHOROUS 1.1 mg/dL (2.5-4.9); POTASSIUM 2.76 mEq/L (3.5-5.1)
[2024-09-03] MEDS ORDERED: POTASSIUM CHLORIDE IN WATER 40 MEQ/100 ML PIGGYBAG IV ONE (08:34)
[2024-09-03] MEDS ORDERED: PANTOPRAZOLE SODIUM 40 MG TABLET.DR PO SCH (09:00)
[2024-09-03] MEDS ORDERED: METOPROLOL SUCCINATE 25 MG TAB.SR.24H PO SCH (09:00)
[2024-09-03] MEDS ORDERED: POTASSIUM CHLORIDE IN WATER 40 MEQ/100 ML PIGGYBAG IV SCH (09:00)
[2024-09-03] MEDS ORDERED: POTASSIUM BICARBONATE/CIT AC 25 MEQ TABLET.EFF PO SCH (10:20)
[2024-09-03] MEDS ORDERED: NAPH,MB-DB/K PH,MBDB 1 PKT PACKET PO SCH (10:21)
[2024-09-03] MEDS ORDERED: LEVALBUTEROL HCL 0.63 MG/3 ML SOLUTION IH ONE ×2 (10:27→13:26)
[2024-09-03] MEDS ORDERED: IPRATROPIUM BROMIDE 0.5 MG/2.5 ML AMPUL.NEB IH ONE ×2 (10:27→13:26)
[2024-09-03] MEDS ORDERED: MAGNESIUM SULFATE IN WATER 50 ML IV STA (10:38)
[2024-09-03] MEDS ORDERED: MAGNESIUM SULFATE 50% 1,000 MG/2 ML VIAL ONE (11:25)
[2024-09-03] MEDS ORDERED: DOXYCYCLINE HYCLATE 100MG EACH PO ONE (16:59)
[2024-09-03] MEDS ORDERED: CEFTRIAXONE SODIUM 2,000 MG VIAL ONE (17:00)
[2024-09-03] MEDS ORDERED: CEFTRIAXONE SODIUM 2,000 MG VIAL IV SCH (17:00)
[2024-09-03] MEDS ORDERED: DOXYCYCLINE HYCLATE 100MG EACH PO SCH (17:00)
[2024-09-03] MEDS ORDERED: POTASSIUM PHOS,M-BASIC-D-BASIC 3 MM/ML VIAL IV SCH (21:00)
[2024-09-03] MEDS ORDERED: FUROsemide 20 MG/2 ML VIAL IV SCH (21:00)
[2024-09-04] VITALS (9 sets, daily range): BP systolic 105–111; BP diastolic 64–68; O2SAT 90–100
[2024-09-04 08:11] LABS: HEMATOCRIT 33.2 % (36.0-45.00); HEMOGLOBIN 11.3 g/dL (12.0-15.00); MEAN CELL VOLUME 87.6 fL (80.00-100.00); MEAN CORPUSCULAR HEMOGLOBIN 29.8 pg (27.00-32.0); PLATELET COUNT 158 K/uL (150-450); RED BLOOD COUNT 3.79 M/uL (4.00-6.00)
[2024-09-04] MEDS ORDERED: CLOPIDOGREL BISULFATE 75 MG TABLET PO SCH (09:00)
[2024-09-04] MEDS ORDERED: DEXTROSE 50 % IN WATER 0.5 G/ML VIAL IV PRN (14:30)
[2024-09-04] MEDS ORDERED: INSULIN LISPRO 1,000 UNIT/10 ML UNITS SUBCUTANEO PRN (14:30)
[2024-09-04] MEDS ORDERED: DOXYCYCLINE HYCLATE 100MG EACH PO SCH (17:00)
[2024-09-04 18:08] LABS: ALBUMIN 3.3 gm/dL (3.4-5.0); BILIRUBIN TOTAL 1.18 mg/dL (0.3-1.2); CALCIUM 8.2 mg/dL (8.5-10.1); CREATININE SERUM 0.94 mg/dL (0.55-1.02); GFR 60.54; GLOBULINA 2.2 G/DL (2.4-3.5); MAGNESIUM 1.9 mg/dL (1.8-2.4); POTASSIUM 3.58 mEq/L (3.5-5.1); TOTAL PROTEIN 5.5 gm/dL (6.4-8.2)
[2024-09-04 18:10] LABS: PHOSPHOROUS 1.9 mg/dL (2.5-4.9)
[2024-09-04] MEDS ORDERED: POTASSIUM PHOS,M-BASIC-D-BASIC 3 MM/ML VIAL IV NR (19:30)
[2024-09-05] VITALS (8 sets, daily range): BP systolic 100–118; BP diastolic 64–68; O2SAT 90–100
[2024-09-05 08:21] LABS: HEMATOCRIT 28.8 % (36.0-45.00); HEMOGLOBIN 10.1 g/dL (12.0-15.00); MEAN CELL VOLUME 87.3 fL (80.00-100.00); MEAN CORPUSCULAR HEMOGLOBIN 30.6 pg (27.00-32.0); MEAN CORPUSCULAR HGB CONC 35.1 g/dl (32.0-36.0); PLATELET COUNT 141 K/uL (150-450); RED CELL DISTRIBUTION WIDTH 18.7 % (11.5-14.5)
[2024-09-05] MEDS ORDERED: FUROsemide 20 MG/2 ML VIAL IV SCH (09:00)
[2024-09-05 09:26] LABS: ALBUMIN 2.9 gm/dL (3.4-5.0); BILIRUBIN TOTAL 0.81 mg/dL (0.3-1.2); CALCIUM 7.9 mg/dL (8.5-10.1); CREATININE SERUM 0.77 mg/dL (0.55-1.02); GFR 76.21; GLOBULINA 2.1 G/DL (2.4-3.5); MAGNESIUM 1.8 mg/dL (1.8-2.4); PHOSPHOROUS 2.1 mg/dL (2.5-4.9); POTASSIUM 3.4 mEq/L (3.5-5.1)
[2024-09-05] MEDS ORDERED: 0.9 % SODIUM CHLORIDE 1,000 ML IV SCH (13:15)
[2024-09-05] MEDS ORDERED: POTASSIUM CHLORIDE IN WATER 100 ML IV NR (15:45)
[2024-09-05] MEDS ORDERED: SODIUM PHOS,M-BASIC-D-BASIC 3 MMOL/ML VIAL IV SCH (17:00)
[2024-09-06] VITALS (10 sets, daily range): BP systolic 102–122; BP diastolic 62–72; O2SAT 94–100
[2024-09-06] MEDS ORDERED: GUAIFENESIN 200 MG/10 ML BLIST.PACK PO PRN (12:00)
[2024-09-07] VITALS (7 sets, daily range): BP systolic 102–122; BP diastolic 62–74; O2SAT 90–99
[2024-09-07 09:36] LABS: ALBUMIN 2.7 gm/dL (3.4-5.0); BILIRUBIN TOTAL 0.52 mg/dL (0.3-1.2); CREATININE SERUM 0.51 mg/dL (0.55-1.02); GFR 122.59; GLOBULINA 1.9 G/DL (2.4-3.5); PHOSPHOROUS 2.7 mg/dL (2.5-4.9); POTASSIUM 3.45 mEq/L (3.5-5.1); TOTAL PROTEIN 4.6 gm/dL (6.4-8.2)
[2024-09-07 09:40] LABS: MAGNESIUM 1.4 mg/dL (1.8-2.4)
[2024-09-07 10:22] LABS: HEMATOCRIT 24.7 % (36.0-45.00); MEAN CORPUSCULAR HEMOGLOBIN 29.4 pg (27.00-32.0); RED BLOOD COUNT 2.82 M/uL (4.00-6.00)
[2024-09-07 10:23] LABS: MEAN CELL VOLUME 87.8 fL (80.00-100.00); MEAN CORPUSCULAR HGB CONC 33.5 g/dl (32.0-36.0); RED CELL DISTRIBUTION WIDTH 19.3 % (11.5-14.5)
[2024-09-07 10:24] LABS: HEMOGLOBIN 8.3 g/dL (12.0-15.00); PLATELET COUNT 96 K/uL (150-450)
[2024-09-07] MEDS ORDERED: MAGNESIUM SULFATE IN WATER 4 GM/100 ML PIGGYBACK IV STA (23:34)
[2024-09-07] MEDS ORDERED: POTASSIUM CHLORIDE 20MEQ/100ML H2O PB IV ONE (23:45)
[2024-09-08] VITALS: BP 130/73; O2SAT 99
[2024-09-08 00:58] VITALS: O2SAT 99
[2024-09-08 05:51] VITALS: O2SAT 100
[2024-09-08 08:00] VITALS: BP 115/74; O2SAT 96
[2024-09-08 09:06] VITALS: O2SAT 99
[2024-09-08 16:43] VITALS: BP 115/53; O2SAT 99
[2024-09-08] MEDS ORDERED: FUROsemide 20 MG TABLET PO SCH (17:10)
[2024-09-09] VITALS (10 sets, daily range): BP systolic 114–130; BP diastolic 67–70; O2SAT 90–100
[2024-09-09 07:31] LABS: HEMATOCRIT 24.3 % (36.0-45.00); MEAN CELL VOLUME 88.8 fL (80.00-100.00); MEAN CORPUSCULAR HEMOGLOBIN 29.5 pg (27.00-32.0); MEAN CORPUSCULAR HGB CONC 33.4 g/dl (32.0-36.0); PLATELET COUNT 103 K/uL (150-450); RED BLOOD COUNT 2.74 M/uL (4.00-6.00); RED CELL DISTRIBUTION WIDTH 19.2 % (11.5-14.5)
[2024-09-09 07:32] LABS: HEMOGLOBIN 8.1 g/dL (12.0-15.00)
[2024-09-09 08:06] LABS: ALBUMIN 2.8 gm/dL (3.4-5.0); BILIRUBIN TOTAL 0.67 mg/dL (0.3-1.2); CALCIUM 8.6 mg/dL (8.5-10.1); CREATININE SERUM 0.47 mg/dL (0.55-1.02); GFR 134.71; GLOBULINA 1.9 G/DL (2.4-3.5); PHOSPHOROUS 2.9 mg/dL (2.5-4.9); POTASSIUM 3.22 mEq/L (3.5-5.1); TOTAL PROTEIN 4.7 gm/dL (6.4-8.2)
[2024-09-09 08:31] LABS: MAGNESIUM 1.2 mg/dL (1.8-2.4)
[2024-09-09] MEDS ORDERED: MAGNESIUM SULFATE IN WATER 100 ML IV NR (09:00)
[2024-09-09] MEDS ORDERED: POTASSIUM CHLORIDE IN WATER 100 ML IV NR (13:10)
[2024-09-09] MEDS ORDERED: DIPHENHYDRAMINE HCL 50 MG/ML VIAL 1ML IV SCH (22:00)
[2024-09-09] MEDS ORDERED: METHYLPREDNISOLONE SOD SUCC 40 MG VIAL IV SCH (22:00)
[2024-09-10] VITALS (8 sets, daily range): BP systolic 110–131; BP diastolic 64–75; O2SAT 84–100
[2024-09-11 00:46] VITALS: O2SAT 100
[2024-09-11] MEDS ORDERED: LEVALBUTEROL HCL 0.63 MG/3 ML SOLUTION IH SCH (01:00)
[2024-09-11] MEDS ORDERED: BENZONATATE 200 MG CAPSULE PO SCH (01:00)
[2024-09-11 01:36] VITALS: BP 109/69; O2SAT 100
[2024-09-11 07:51] LABS: HEMATOCRIT 23.8 % (36.0-45.00); MEAN CELL VOLUME 87.7 fL (80.00-100.00); MEAN CORPUSCULAR HGB CONC 34.7 g/dl (32.0-36.0); PLATELET COUNT 131 K/uL (150-450); RED BLOOD COUNT 2.72 M/uL (4.00-6.00); RED CELL DISTRIBUTION WIDTH 18.9 % (11.5-14.5)
[2024-09-11 07:52] LABS: HEMOGLOBIN 8.3 g/dL (12.0-15.00); MEAN CORPUSCULAR HEMOGLOBIN 30.5 pg (27.00-32.0)
[2024-09-11 08:00] VITALS: BP 112/68; O2SAT 95
[2024-09-11 08:32] LABS: ALBUMIN 2.9 gm/dL (3.4-5.0); BILIRUBIN TOTAL 0.88 mg/dL (0.3-1.2); CALCIUM 8.5 mg/dL (8.5-10.1); CREATININE SERUM 0.59 mg/dL (0.55-1.02); GFR 103.62; PHOSPHOROUS 2.7 mg/dL (2.5-4.9); POTASSIUM 3.87 mEq/L (3.5-5.1); TOTAL PROTEIN 4.9 gm/dL (6.4-8.2)
[2024-09-11 16:00] VITALS: BP 113/54; O2SAT 97
[2024-09-11 19:32] VITALS: O2SAT 82
[2024-09-12] VITALS (8 sets, daily range): BP systolic 129–151; BP diastolic 75–85; O2SAT 95–100
[2024-09-12 12:12] LABS: IMMUNOGLOBULIN A 7 mg/dL (87-352); IMMUNOGLOBULIN G 216 mg/dL (586-1602); kappa light 12.8 mg/L (3.3-19.4)
[2024-09-12 15:12] LABS: a:g ratio 1.8 (0.7-1.7); alpha 1 g 0.4 g/dL (0.0-0.4); alpha 2 0.6 g/dL (0.4-1.0); beta g 0.6 g/dL (0.7-1.3); gamma g 0.1 g/dL (0.4-1.8); globulin t 1.7 g/dL (2.2-3.9); prot total 4.7 g/dL (6.0-8.5)
[2024-09-13] VITALS (7 sets, daily range): BP systolic 119–142; BP diastolic 70–82; O2SAT 90–99
[2024-09-13] MEDS ORDERED: FUROsemide 20 MG/2 ML VIAL IV NR (10:00)
[2024-09-13 11:57] LABS: BASO % 0.1 % (0.1-1.2); EOS # 0.02 (0.04-0.54); EOS % 0.2 % (0.7-7.0); HEMATOCRIT 34.2 % (34.1-44.9); HEMOGLOBIN 11.3 g/dL (11.2-15.7); LYMPH % 17.1 % (19.3-53.1); MEAN CORPUSCULAR HEMOGLOBIN 28.8 pg (25.6-32.2); MONO # 0.44 (0.24-0.82); MONO % 5.4 % (4.7-12.5); NEUT % 75.6 % (34.0-71.1); PLATELET COUNT 194 K/uL (163-369); RED BLOOD COUNT 3.92 M/uL (3.93-5.22); RED CELL DISTRIBUTION WIDTH 17.8 % (11.6-14.4)
[2024-09-13 13:02] LABS: ALBUMIN 3.5 gm/dL (3.4-5.0); BILIRUBIN TOTAL 1.1 mg/dL (0.3-1.2); CALCIUM 8.7 mg/dL (8.5-10.1); CREATININE SERUM 0.85 mg/dL (0.55-1.02); GFR 67.99; GLOBULINA 2.4 G/DL (2.4-3.5); MAGNESIUM 1.7 mg/dL (1.8-2.4); PHOSPHOROUS 2.7 mg/dL (2.5-4.9); POTASSIUM 3.9 mEq/L (3.5-5.1); TOTAL PROTEIN 5.9 gm/dL (6.4-8.2)
[2024-09-13] MEDS ORDERED: MAGNESIUM SULFATE IN WATER 50 ML IV NR (17:00)
[2024-09-13 17:08] LABS: alb 24.6 % (.); alp 2 18.3 % (.); bet 39.7 % (.); gamma 5.4 % (.); prote 46.8 mg/dL (Not Estab.)
[2024-09-14 00:36] VITALS: O2SAT 97
[2024-09-14 02:04] VITALS: BP 109/67; O2SAT 99
[2024-09-14 09:00] VITALS: O2SAT 90
[2024-09-14 09:27] VITALS: BP 139/88; O2SAT 96
[2024-09-14] MEDS ORDERED: BENZONATATE200 M1 PO (09:42)
[2024-09-14 13:36] VITALS: O2SAT 90
== END 2024-09-14 22:52 | disposition home or self-care (01) | DRG 193 ==
LOC: ER 00:32 → ICU-2 16:40 → SEC-K 09-03 16:03 → SURH 09-03 16:15
PROVIDERS: General Practice; Internal Medicine Hematology & Oncology; ADMIT Internal Medicine; ATTEND Internal Medicine
PROC: BW24ZZZ Computerized Tomography (CT Scan) of Chest and Abdomen (ICD-10-PCS; principal; 2024-09-02)
PROC: B24BYZZ Ultrasonography of Heart with Aorta using Other Contrast (ICD-10-PCS; 2024-09-02)
PROC: 02HV33Z Insertion of Infusion Device into Superior Vena Cava, Percutaneous Approach (ICD-10-PCS; 2024-09-04)
PROC: 4A12X4Z Monitoring of Cardiac Electrical Activity, External Approach (ICD-10-PCS; 2024-09-04)
PROC: 30243N1 Transfusion of Nonautologous Red Blood Cells into Central Vein, Percutaneous Approach (ICD-10-PCS; 2024-09-11)
DX: J10.00 Influenza due to other identified influenza virus with unspecified type of pneumonia (principal); I21.A1 Myocardial infarction type 2; I38 Endocarditis, valve unspecified; C90.00 Multiple myeloma not having achieved remission; I50.9 Heart failure, unspecified; D64.9 Anemia, unspecified

== ENCOUNTER 2024-10-03 17:02 | Inpatient (IN) | payer OTHER ==
[~2024-10-03] VITALS: Ht 160 cm; Wt 48.1 kg
[~2024-10-03 17:02] MED LIST changes: +BENZONATATE200 M1 PO; +GLIPIZIDE XL10 MG PO; +LASIX20 MG PO; +ZOFRAN8 MG PO
[2024-10-03 18:48] LABS: BASO % 0.1 % (0.1-1.2); EOS # 0.08 (0.04-0.54); EOS % 0.9 % (0.7-7.0); HEMOGLOBIN 9.2 g/dL (11.2-15.7); LYMPH # 2.43 (1.18-3.74); LYMPH % 28.8 % (19.3-53.1); MEAN CORPUSCULAR HEMOGLOBIN 29.5 pg (25.6-32.2); MONO # 1.12 (0.24-0.82); NEUT # 4.78 (1.56-6.13); NEUT % 56.5 % (34.0-71.1); PLATELET COUNT 262 K/uL (163-369); RED BLOOD COUNT 3.12 M/uL (3.93-5.22); RED CELL DISTRIBUTION WIDTH 18.9 % (11.6-14.4)
[2024-10-03 18:56] LABS: MONO % 13.3 % (4.7-12.5)
[2024-10-03 19:06] LABS: PH,URINE 5.5 (5.0-8.0); URINE APPEARANCE Clear; URINE BILIRRUBIN Negative (NEGATIVE); URINE BLOOD Large; URINE COLOR Orange; URINE GLUCOSE Negative (NEGATIVE); URINE KETONE Negative (NEGATIVE); URINE LEUKOCYTE Trace; URINE NITRATE Negative; URINE PROTEIN 30 (NEGATIVE); URINE UROBILINOGEN 0.2 E.U./dl
[2024-10-03 19:10] LABS: URINE BACTERIA 123.6 uL (0.0-1933); URINE EPITHELIAL CELLS 7.1 uL (0.0-38.8); URINE RBC 5206.2 uL (0.0-20.8); URINE WBC 44.1 uL (0.0-23.2)
[2024-10-03 19:21] LABS: ALBUMIN 3.7 gm/dL (3.4-5.0); BILIRUBIN TOTAL 0.53 mg/dL (0.3-1.2); CREATININE SERUM 0.96 mg/dL (0.55-1.02); GFR 59.08; GLOBULINA 3.1 G/DL (2.4-3.5); POTASSIUM 3.69 mEq/L (3.5-5.1); TOTAL PROTEIN 6.8 gm/dL (6.4-8.2)
[2024-10-03] MEDS ORDERED: INSULIN LISPRO 1,000 UNIT/10 ML UNITS SUBCUTANEO PRN (23:30)
[2024-10-03] MEDS ORDERED: DEXTROSE 50 % IN WATER 0.5 G/ML DISP.SYRIN IV PRN (23:30)
[2024-10-03] MEDS ORDERED: ACETAMINOPHEN 325 MG TABLET PO PRN (23:30)
[2024-10-04] MEDS ORDERED: GUAIFENESIN 200 MG/10 ML BLIST.PACK PO SCH
[2024-10-04] MEDS ORDERED: GUAIFENESIN 200 MG/10 ML BLIST.PACK PO ONE (00:54)
[2024-10-04] MEDS ORDERED: CEFEPIME HCL 2,000 MG VIAL ONE (00:54)
[2024-10-04] MEDS ORDERED: LEVALBUTEROL HCL 0.63 MG/3 ML SOLUTION IH SCH (01:00)
[2024-10-04] MEDS ORDERED: CEFEPIME HCL 2,000 MG in 0.9 % SODIUM CHLORIDE 100 ML IV SCH (01:00)
[2024-10-04 02:09] VITALS: BP 151/87; O2SAT 97
[2024-10-04 03:18] VITALS: BP 173/83; O2SAT 94
[2024-10-04 07:36] LABS: INR 1.1; PARTIAL THROMBOPLASTIN TIME 30.6 SECONDS (22.0-34.0); PROTHROMBIN TIME 11.9 SECONDS (9.0-11.5)
[2024-10-04 07:42] LABS: COVID-19 AG NEGATIVE (NEGATIVE)
[2024-10-04] MEDS ORDERED: IRON FUM,PS/FOLIC/BCOMP,C NO.9 1 CAP CAPSULE PO SCH (09:00)
[2024-10-04] MEDS ORDERED: METOPROLOL SUCCINATE 25 MG TAB.SR.24H PO SCH (09:00)
[2024-10-04] MEDS ORDERED: DEXTROSE 50 % IN WATER 0.5 G/ML VIAL IV PRN (10:45)
[2024-10-04 11:15] LABS: BASO % 0.2 % (0.1-1.2); EOS # 0.09 (0.04-0.54); EOS % 1.6 % (0.7-7.0); HEMATOCRIT 29.1 % (34.1-44.9); HEMOGLOBIN 9.4 g/dL (11.2-15.7); LYMPH # 0.99 (1.18-3.74); LYMPH % 17.5 % (19.3-53.1); MEAN CORPUSCULAR HEMOGLOBIN 30.8 pg (25.6-32.2); MONO # 0.69 (0.24-0.82); NEUT # 3.85 (1.56-6.13); NEUT % 68.1 % (34.0-71.1); PLATELET COUNT 215 K/uL (163-369); RED BLOOD COUNT 3.05 M/uL (3.93-5.22); RED CELL DISTRIBUTION WIDTH 19.3 % (11.6-14.4)
[2024-10-04 11:16] LABS: MONO % 12.2 % (4.7-12.5)
[2024-10-04 13:16] LABS: ABG PH 7.439 (7.35-7.45); ABG PO2 74.3 mmHg (80-100); ABG pCO2 35.7 mmHg (35-45); BASE EXCESS 0 mmol/l; BICARBONATE 23.6 mmol/l (23-25); SaO2 95.3 %; Tco2 24.7 mmol/l; allen test SATISFACTORY; mode ROOM AIR; o2 21 %; puncture site RADIAL RIGHT
[2024-10-04 14:23] LABS: INFLUENZA A AG NEGATIVE (NEGATIVE); INFLUENZA B AG NEGATIVE (NEGATIVE)
[2024-10-04] MEDS ORDERED: INTEGRA PLUS C1 EACH PO (16:18)
[2024-10-04] MEDS ORDERED: NORVASC2.5 M1 PO (16:18)
[2024-10-04] MEDS ORDERED: TOPROL XL25 M1 PO (16:18)
[2024-10-04] MEDS ORDERED: FUROSEMIDE20 MG PO (16:18)
[2024-10-04] MEDS ORDERED: LIPITOR40 M1 PO (16:18)
[2024-10-04] MEDS ORDERED: ATORVASTATIN CALCIUM 40 MG TABLET PO SCH (17:00)
[2024-10-04] MEDS ORDERED: AMLODIPINE BESYLATE 5 MG TABLET PO SCH (17:00)
[2024-10-05] MEDS ORDERED: AMLODIPINE BESYLATE 2.5 MG TABLET PO SCH (09:00)
[2024-10-05] MEDS ORDERED: FUROsemide 20 MG TABLET PO SCH (09:00)
== END 2024-10-04 17:32 | disposition home or self-care (01) | DRG 195 ==
LOC: ER 18:29 → MEDJ 23:12 → SURH 23:12
PROVIDERS: General Practice; Student in an Organized Health Care Education/Training Program; ADMIT Internal Medicine; ATTEND Internal Medicine
PROC: BW25ZZZ Computerized Tomography (CT Scan) of Chest, Abdomen and Pelvis (ICD-10-PCS; principal; 2024-10-03)
PROC: 3E0F7GC Introduction of Other Therapeutic Substance into Respiratory Tract, Via Natural or Artificial Opening (ICD-10-PCS; 2024-10-04)
PROC: 4A033R1 Measurement of Arterial Saturation, Peripheral, Percutaneous Approach (ICD-10-PCS; 2024-10-04)
DX: J18.9 Pneumonia, unspecified organism (principal); Z85.3 Personal history of malignant neoplasm of breast; Z92.21 Personal history of antineoplastic chemotherapy; R31.9 Hematuria, unspecified; Z90.10 Acquired absence of unspecified breast and nipple; I35.0 Nonrheumatic aortic (valve) stenosis; I50.810 Right heart failure, unspecified; I27.20 Pulmonary hypertension, unspecified; I34.0 Nonrheumatic mitral (valve) insufficiency; I07.1 Rheumatic tricuspid insufficiency; D05.12 Intraductal carcinoma in situ of left breast; Z85.79 Personal history of other malignant neoplasms of lymphoid, hematopoietic and related tissues

== ENCOUNTER 2024-10-07 17:30 | Inpatient (IN) | payer OTHER ==
[~2024-10-07] VITALS: Ht 160 cm; Wt 47.6 kg
[~2024-10-07 17:30] MED LIST changes: +LIPITOR40 M1 PO; +NORVASC2.5 M1 PO
[2024-10-07] MEDS ORDERED: 0.9 % SODIUM CHLORIDE 1,000 ML IV SCH (18:30)
[2024-10-07] MEDS ORDERED: METHYLPREDNISOLONE SOD SUCC 125 MG VIAL IV ONE (18:30)
[2024-10-07] MEDS ORDERED: CEFTRIAXONE SODIUM 2,000 MG VIAL IV ONE (18:30)
[2024-10-07 18:57] LABS: ABG PO2 67.6 mmHg (80-100); ABG pCO2 36.5 mmHg (35-45)
[2024-10-07 18:57] LABS: BASO % 0.3 % (0.1-1.2); EOS # 0.16 (0.04-0.54); EOS % 2.3 % (0.7-7.0); HEMATOCRIT 29.1 % (34.1-44.9); HEMOGLOBIN 9.4 g/dL (11.2-15.7); LYMPH # 1.15 (1.18-3.74); LYMPH % 16.2 % (19.3-53.1); MEAN CORPUSCULAR HEMOGLOBIN 30.1 pg (25.6-32.2); MONO # 1.05 (0.24-0.82); NEUT # 4.69 (1.56-6.13); PLATELET COUNT 255 K/uL (163-369); RED BLOOD COUNT 3.12 M/uL (3.93-5.22)
[2024-10-07 18:58] LABS: MONO % 14.8 % (4.7-12.5)
[2024-10-07 18:58] LABS: BASE EXCESS -0.2 mmol/l; BICARBONATE 23.7 mmol/l (23-25); SaO2 93.7 %; Tco2 24.8 mmol/l; allen test SATISFACTORY; mode ROOM AIR; o2 21 %; puncture site RADIAL LEFT
[2024-10-07 19:24] LABS: ALBUMIN 3.6 gm/dL (3.4-5.0); BILIRUBIN TOTAL 0.73 mg/dL (0.3-1.2); CALCIUM 9.5 mg/dL (8.5-10.1); CREATININE SERUM 0.79 mg/dL (0.55-1.02); GFR 73.99; GLOBULINA 2.6 G/DL (2.4-3.5); POTASSIUM 3.69 mEq/L (3.5-5.1); TOTAL PROTEIN 6.2 gm/dL (6.4-8.2)
[2024-10-07] MEDS ORDERED: CEFTRIAXONE SODIUM 2,000 MG VIAL ONE (19:25)
[2024-10-07] MEDS ORDERED: METHYLPREDNISOLONE SOD SUCC 125 MG VIAL ONE (19:25)
[2024-10-07 20:19] LABS: COVID-19 AG NEGATIVE (NEGATIVE)
[2024-10-07] MEDS ORDERED: FUROsemide 40 MG/4 ML VIAL IV ONE (20:45)
[2024-10-07] MEDS ORDERED: NITROGLYCERIN 250 ML IV SCH (20:45)
[2024-10-07 21:12] LABS: INFLUENZA A AG NEGATIVE (NEGATIVE); INFLUENZA B AG NEGATIVE (NEGATIVE)
[2024-10-07] MEDS ORDERED: NITROGLYCERIN IN 5 % DEXTROSE 50 MG/250 ML BOTTLE IV ONE (21:23)
[2024-10-07] MEDS ORDERED: FUROsemide 20 MG/2 ML VIAL ONE (21:31)
[2024-10-07] MEDS ORDERED: IPRATROPIUM BROMIDE 0.5 MG/2.5 ML AMPUL.NEB IH SCH (22:31)
[2024-10-07] MEDS ORDERED: ATORVASTATIN CALCIUM 40 MG TABLET PO SCH (22:33)
[2024-10-07] MEDS ORDERED: FUROsemide 20 MG/2 ML VIAL IV SCH (22:33)
[2024-10-07] MEDS ORDERED: ACETAMINOPHEN 500 MG GEL..CAP PO PRN (22:45)
[2024-10-07 23:00] VITALS: BP 125/71; O2SAT 98
[2024-10-08] VITALS (19 sets, daily range): BP systolic 99–175; BP diastolic 43–83; O2SAT 98–100
[2024-10-08] MEDS ORDERED: ACETAMINOPHEN 500 MG GEL..CAP PO ONE (00:05)
[2024-10-08] MEDS ORDERED: NITROGLYCERIN IN 5 % DEXTROSE 250 ML IV SCH (06:45)
[2024-10-08] MEDS ORDERED: FAMOTIDINE/PF 20 MG in 0.9 % SODIUM CHLORIDE 8 ML IV PUSH SCH ×2 (09:00→21:00)
[2024-10-08] MEDS ORDERED: IRON FUM,PS/FOLIC/BCOMP,C NO.9 1 CAP CAPSULE PO SCH (09:00)
[2024-10-08] MEDS ORDERED: METOPROLOL SUCCINATE 25 MG TAB.SR.24H PO SCH (09:00)
[2024-10-08] MEDS ORDERED: NITROGLYCERIN IN 5 % DEXTROSE 50 MG/250 ML BOTTLE IV ONE (09:49)
[2024-10-08] MEDS ORDERED: IPRATROPIUM BROMIDE 0.5 MG/2.5 ML AMPUL.NEB IH ONE (16:24)
[2024-10-08] MEDS ORDERED: DEXTROSE 50 % IN WATER 0.5 G/ML VIAL IV PRN (17:45)
[2024-10-08] MEDS ORDERED: INSULIN LISPRO 1,000 UNIT/10 ML UNITS SUBCUTANEO PRN (17:45)
[2024-10-08] MEDS ORDERED: FAMOTIDINE/PF 20 MG/2 ML VIAL ONE (21:26)
[2024-10-09] VITALS (22 sets, daily range): BP systolic 105–142; BP diastolic 46–80; O2SAT 95–100
[2024-10-09] MEDS ORDERED: IPRATROPIUM BROMIDE 0.5 MG/2.5 ML AMPUL.NEB IH ONE ×2 (01:23→17:51)
[2024-10-09 06:41] LABS: INR 1.15; PARTIAL THROMBOPLASTIN TIME 29.1 SECONDS (22.0-34.0); PROTHROMBIN TIME 12.4 SECONDS (9.0-11.5)
[2024-10-09 08:36] LABS: ALBUMIN 3.1 gm/dL (3.4-5.0); BILIRUBIN TOTAL 0.57 mg/dL (0.3-1.2); CALCIUM 8.3 mg/dL (8.5-10.1); CREATININE SERUM 0.93 mg/dL (0.55-1.02); GFR 61.29; GLOBULINA 2.6 G/DL (2.4-3.5); MAGNESIUM 1.7 mg/dL (1.8-2.4); PHOSPHOROUS 2.3 mg/dL (2.5-4.9); T4 FREE 1.24 NG/ML (0.76-1.46); TOTAL PROTEIN 5.7 gm/dL (6.4-8.2)
[2024-10-09] MEDS ORDERED: FAMOTIDINE/PF 20 MG in 0.9 % SODIUM CHLORIDE 8 ML IV PUSH SCH (09:00)
[2024-10-09] MEDS ORDERED: NAPH,MB-DB/K PH,MBDB 1 PKT PACKET PO SCH (09:32)
[2024-10-09] MEDS ORDERED: MAGNESIUM SULFATE IN WATER 50 ML IV NR (09:45)
[2024-10-09] MEDS ORDERED: INSULIN LISPRO 1,000 UNIT/10 ML UNITS SUBCUTANEO ONE (11:21)
[2024-10-09 12:07] LABS: POTASSIUM 3.21 mEq/L (3.5-5.1)
[2024-10-09] MEDS ORDERED: FUROsemide 20 MG/2 ML VIAL ONE (17:50)
[2024-10-09] MEDS ORDERED: FAMOTIDINE/PF 20 MG/2 ML VIAL ONE (20:53)
[2024-10-10] VITALS (17 sets, daily range): BP systolic 98–140; BP diastolic 43–61; O2SAT 94–100
[2024-10-10] MEDS ORDERED: POTASSIUM PHOS,M-BASIC-D-BASIC 15 MM in 0.9 % SODIUM CHLORIDE 250 ML IV NR (10:45)
[2024-10-10] MEDS ORDERED: POTASSIUM CHLORIDE IN WATER 100 ML IV NR (10:45)
[2024-10-10] MEDS ORDERED: BENZONATATE 200 MG CAPSULE PO PRN (10:45)
[2024-10-10] MEDS ORDERED: MAGNESIUM SULFATE IN WATER 50 ML IV NR (10:45)
[2024-10-10] MEDS ORDERED: GUAIFEN/DEXTROMETHORPHAN/PE 10 ML BLIST.PACK PO PRN (10:45)
[2024-10-10] MEDS ORDERED: LEVALBUTEROL HCL 0.63 MG/3 ML SOLUTION IH SCH (13:00)
[2024-10-10] MEDS ORDERED: POTASSIUM CHLORIDE IN WATER 40 MEQ/100 ML PIGGYBAG IV ONE (13:39)
[2024-10-10] MEDS ORDERED: IPRATROPIUM BROMIDE 0.5 MG/2.5 ML AMPUL.NEB IH ONE (15:57)
[2024-10-10] MEDS ORDERED: FUROsemide 20 MG/2 ML VIAL IV SCH (21:00)
[2024-10-10] MEDS ORDERED: NITROGLYCERIN IN 5 % DEXTROSE 50 MG/250 ML BOTTLE IV ONE (21:51)
[2024-10-11] VITALS (8 sets, daily range): BP systolic 80–160; BP diastolic 43–72; O2SAT 100
== END 2024-10-11 10:00 | disposition designated cancer center or children's hospital (05) | DRG 292 ==
LOC: ER 17:30 → ICU-2 22:35 → SEC-K 10-08 12:26 → ICU-2 10-08 12:28
PROVIDERS: General Practice; ADMIT Internal Medicine; ATTEND Internal Medicine
PROC: B246ZZZ Ultrasonography of Right and Left Heart (ICD-10-PCS; principal; 2024-10-07)
PROC: 4A12X4Z Monitoring of Cardiac Electrical Activity, External Approach (ICD-10-PCS; 2024-10-07)
PROC: 3E0F7GC Introduction of Other Therapeutic Substance into Respiratory Tract, Via Natural or Artificial Opening (ICD-10-PCS; 2024-10-08)
PROC: 02HV33Z Insertion of Infusion Device into Superior Vena Cava, Percutaneous Approach (ICD-10-PCS; 2024-10-10)
PROC: B548ZZA Ultrasonography of Superior Vena Cava, Guidance (ICD-10-PCS; 2024-10-10)
DX: I50.23 Acute on chronic systolic (congestive) heart failure (principal); I38 Endocarditis, valve unspecified; I11.0 Hypertensive heart disease with heart failure; I27.22 Pulmonary hypertension due to left heart disease; I35.0 Nonrheumatic aortic (valve) stenosis; E83.42 Hypomagnesemia; E83.39 Other disorders of phosphorus metabolism; E87.6 Hypokalemia; R31.0 Gross hematuria; R06.03 Acute respiratory distress